=== PATIENT | male | born 1970 | race Caucasian/White ===

== ENCOUNTER 2016-04-13 11:16 | Emergency (ER) | payer BC ==
[2016-04-13 12:54] LABS: Hematocrit 49.2 % (42.0-52.0); Hemoglobin 17.2 gm/dL (13.5-18.0); Mean Cell Volume 89.6 fl (78-100); Mean Corpuscular Hemoglobin 31.3 pg (27-31); Mean Platelet Volume 9.9 fl (6.0-9.5); Neutrophil # 9.5 K/mm3 (1.3-6.0); Neutrophil % 72.3 % (42-75.0); Platelet Count 100 K/mm3 (150-450); Red Blood Count 5.49 M/mm3 (4.7-6.0); Red Cell Distribution Width 12.5 % (11.5-14.0); White Blood Count 13.2 K/mm3 (4.0-10.5)
[2016-04-13 12:55] LABS: Urine Bilirubin Negative (NEGATIVE); Urine Blood Negative /ul (NEGATIVE); Urine Ketone Negative (NEGATIVE); Urine Nitrite Negative (NEGATIVE); Urine Protein Negative (NEGATIVE); Urine Specific Gravity 1.015 SP.GR. (1.005-1.030); Urine Urobilinogen Normal (NORMAL); Urine pH 7.5 pH (5.0-7.0)
[2016-04-13 13:04] LABS: Urine Appearance Clear; Urine Bacteria None Seen; Urine Color Yellow; Urine RBC None Seen /hpf (0-5); Urine WBC None Seen /hpf (0-5)
[2016-04-13 13:15] LABS: Albumin * 3.8 gm/dl (3.4-5.0); Anion Gap 14.4 mmol/L (6.8-13.8); BUN/Creatinine Ratio 11.1 (9.0-21.6); Ca. Corrected For Albumin 8.8 mg/dL (8.4-10.2); Carbon Dioxide 23.8 mmol/L (24-32.6); Potassium 4.2 mmol/L (3.4-4.6); Total Protein 7.8 gm/dL (6.2-8.2)
--- NOTE | 2016-04-13 13:38 | ERNOTE ---
<Nunu Vuong - Last Filed: 04/13/16 14:13> Abdominal HPI - Narrative Date of Service: 04/13/16 - Patient has known history of diverticulitis, 2 days of pain - General Chief Complaint: Abdominal Pain Time Seen by Provider: 04/13/16 13:33 Source: patient - Immun/Allergies/Home Medications Immunizatons: IMMUNIZATION HX Immunizations Up to Date Yes History of Influenza Vaccine No Hx Pneumococcal Vaccination No Allergies/Adverse Reactions: Allergies Penicillins Allergy (Mild, Verified 04/13/16 11:35) Itching Home Medications: HOME MEDICATIONS Ciprofloxacin HCl [Cipro] 500 mg PO BID #20 tablet 04/13/16 [Last Taken Unknown] Hydrocodone/Acetaminophen [Lortab 5-325 mg Tablet] 1 - 2 each PO QID PRN #20 tablet 04/13/16 [Last Taken Unknown] metroNIDAZOLE [Flagyl] 500 mg PO Q8H #30 tablet 04/13/16 [Last Taken Unknown] - Pain Score Pain Score #2 Pain Score: 10 Abdominal Pain Onset Location: LLQ, suprapubic Pain Radiation: LLQ - History of Present Illness Date (Duration): 04/11/16 Time (Timing): 21:00 Timing: constant, getting worse Quality: severe Activities at Onset: none Modifying Factors - (Improves): Present: rest, other - nothing is making it better Associated Symptoms: Present: denies symptoms, other - some loose stools . Absent: headache, back pain, fever/chills, nausea, vomiting Prior Treatment: Present: recently seen, other - has had several Ed visits for similar llq abd pain, seen 03/22, 01/20 [address] 05/2015 CT's of abd and pelvis have confirmed diverticulitis in sigmoid colon Review of Systems - Narrative Narrative: Known history of diverticulitis, no prior colonoscopy, + ct confirmation of sigmoid colon, no history of abd surgeries. - Review of Systems Constitutional: Absent: fever, chills, decreased activity level EYE: Present: no symptoms reported ENT: Present: no symptoms reported Respiratory: Present: no symptoms reported Cardiology: Present: no symptoms reported Gastrointestinal/Abdominal: Present: See HPI, constipation, abdominal pain - left lower quad per hpi , eating less, other - history of thrombocytopenia idiopathic Genitourinary: Present: no symptoms reported Musculoskeletal: Present: no symptoms reported Skin: Present: no symptoms reported Neurological: Present: no symptoms reported Endocrine: Present: no symptoms reported Hematologic/Lymphatic: Present: no symptoms reported Psych: Present: no symptoms reported All Other Systems: All systems neg except as marked - Narrative Narrative: All pmhx, social hx and family history reviewed, medications reviewed. - Patient's Past Medical History Patient History - Medical: No pertinent hx, GERD, Other Patient History - Cardiac/Respiratory: No pertinent hx Patient History - Cancer: No Hx of Cancer Patient History - Surgical Procedures: Back Surgery Patient History - Other: None - Family History Family History:: no untoward family reactions to anesthesia - Family History mom Family History - Medical: History Unknown dad Family History - Medical: History Unknown - Social History Living Situations: home Abuse History: No History of abuse Psych History: No pertinent hx Does anyone smoke in the home?: Yes Smoking Status: Current every day smoker Have you smoked in the past 12 months: Yes - smokes 1ppd Do you dip or chew tobacco: No Patient requests Smoking Cessation Consult: No Initiate information on Smoking Cessation: Yes Alcohol Use: heavy Drug Use: none, marijuana - Immunizations Immunizations Up to Date: Yes Hx Pneumococcal Vaccination: No History of Influenza Vaccine: No Physical Exam - Physical Exam General Appearance: Present: wd/wn, alert, moderate distress Eye Exam: Normal inspection: bilateral, PERRL: bilateral, EOMI: bilateral Ears, Nose, Throat: Present: normal ENT inspection, hearing grossly normal, normal pharynx, dry mucous membranes Neck: Present: normal inspection, nontender Respiratory: Present: no respiratory distress, normal breath sounds, no accessory muscle use, chest nontender, chest tenderness - left nipple mild Cardiovascular/Chest: Present: regular rate, rhythm, no murmur, normal peripheral pulses Gastrointestinal/Abdominal: Present: normal bowel sounds, nontender, nondistended, soft, no organomegaly Rectal Exam: Present: deferred Male Genitals Exam: Present: deferred Back Exam: Present: normal inspection, normal range of motion Extremity Exam: Present: normal inspection, non-tender, no edema Neurological Exam: Present: alert, oriented, normal mood/affect, no motor/ sensory deficits, hospice registered nurse II-XII nml as tested DTR: N=norm/NB=norm/brisk/A=abs/DD=dull/dimin/HC=hyperactive: Bicep (R): Normal , Knee (R): Normal Skin Exam: Present: normal color, warm/dry Lymphatic Exam: Present: no adenopathy ED Progress - Date and Time Seen: Date and Time: 04/13/16 14:25 labs reviewed, Leukocytosis, => Cipro 400mg IV ordered for presumed diverticular disease with acute exacerbation - Results and Orders Patient's Lab Results:: I have reviewed the patient's lab results. - Vital Signs Patient's Vital Signs:: I have reviewed the patient's vital signs. Vital Signs: Vital Signs 04/13/16 11:30 Temperature 36.8 C Pulse Rate 100 Respiratory 12 Rate Blood Pressure 165/110 O2 Sat by Pulse 96 Oximetry - Progress/Reassessment Chief Complaint: Abdominal Pain Progress Note-Subjective: 04/13/16 14:26 signed out to New Provider - Transfer of Care Physician Sign Out: Nunu Vuong Receiving Physician: Jitendra Truong - report given Pending Results: Pain-control, X-ray results Plan - Plan Plan: plan per Dr. Truong Departure - Departure Clinical Impression: Diverticulitis, Thrombocytopenia Abdominal pain Qualifiers: Abdominal location: left lower quadrant Qualified Code(s): R10.32 - Left lower quadrant pain Disposition: Home self-care Condition: Good Instructions: Diverticulitis, [id number] Additional Instructions: Finish your antibiotics. Follow up with your doctor in 2 weeks. Consider having a colonoscopy. Return if you have increased symptoms. Prescriptions: Ciprofloxacin HCl [Cipro] 500 mg PO BID #20 tablet Hydrocodone/Acetaminophen [Lortab 5-325 mg Tablet] 1 - 2 each PO QID PRN #20 tablet PRN Reason: Pain metroNIDAZOLE [Flagyl] 500 mg PO Q8H #30 tablet <Jitendra Truong - Last Filed: 04/13/16 15:45> Abdominal HPI - Immun/Allergies/Home Medications Immunizatons: IMMUNIZATION HX Immunizations Up to Date Yes History of Influenza Vaccine No Hx Pneumococcal Vaccination No ED Progress - Vital Signs Vital Signs: Vital Signs 04/13/16 04/13/16 04/13/16 11:30 14:35 15:12 Temperature 36.8 C Pulse Rate 100 88 84 Respiratory 12 17 15 Rate Blood Pressure 165/110 160/93 133/83 O2 Sat by Pulse 96 95 96 Oximetry - Progress/Reassessment Progress:: Re-examined Progress Note-Subjective: 04/13/16 15:44 Abd soft, nontender. Ambulates without difficulty. Plan - Plan Plan: Home. Cipro and Flagyl, few Vicodin. Consider colonoscopy. FU PCP.
[2016-04-13] MEDS ORDERED: ONDANSETRON HCL/PF 2 MG/ML VIAL IV ONE (13:53)
[2016-04-13] MEDS ORDERED: MORPHINE SULFATE 4 MG/ML SYRG IV PRN (13:54)
[2016-04-13] MEDS ORDERED: NORMAL SALINE 1,000 ML IV ONE (13:54)
[2016-04-13] MEDS ORDERED: MORPHINE SULFATE 4 MG/ML SYRG ONE (13:58)
[2016-04-13] MEDS ORDERED: ONDANSETRON HCL/PF 2 MG/ML VIAL ONE (14:04)
[2016-04-13] MEDS ORDERED: CIPROFLOXACIN LACTATE/D5W 400 MG in Premix Bag 1 BAG IV ONE (14:10)
[2016-04-13] MEDS ORDERED: MORPHINE SULFATE 4 MG/ML SYRG IM ONE (14:10)
[2016-04-13] MEDS ORDERED: MORPHINE SULFATE 4 MG/ML SYRG IV ONE (14:11)
[2016-04-13 15:54] VITALS: BP 135/87
== END 2016-04-13 15:53 | disposition home or self-care (01) ==
LOC: ER 11:16
DX: K57.92 Diverticulitis of intestine, part unspecified, without perforation or abscess without bleeding (principal); D69.6 Thrombocytopenia, unspecified; R10.32 Left lower quadrant pain; F17.210 Nicotine dependence, cigarettes, uncomplicated